=== PATIENT | female | born 1980 | race Hispanic/Latino ===

== ENCOUNTER 2018-12-01 05:39 | Emergency (ER) | payer MEDICAID ==
[2018-12-01] MEDS ORDERED: ROBITUSSIN PO ONE (07:56)
[2018-12-01] MEDS ORDERED: DELTASONE PO ONE (07:56)
[2018-12-01] MEDS ORDERED: TORADOL IM ONE (07:57)
[2018-12-01] MEDS ORDERED: DUONEB *Not for PRN Use IH ONE (07:58)
--- NOTE | 2018-12-01 08:00 | Emergency Department Report ---
Minor Respiratory - HPI Chief Complaint: Dyspnea/Respdistress Stated Complaint: JOE/COUGH Time Seen by Provider: 12/01/18 07:40 Duration: 2 weeks Minor Respiratory: Yes Able to Tolerate Fluids, Yes Cough, No Rhinorrhea, No Sore Throat, No Ear Pain, No Sick Contacts, No Hemoptysis, No Chest Pain, No Shortness of Breath, No Fever Other History: This is a 38-year-old smoker with suicidal allergies presents to the ED complaining of 2 weeks intermittently coughing. Patient states that she is taking [id number] mucus relief and cough medication. Patient states she is still coughing intermittently. Patient states that she does continue to smoke and has sinus allergies that get worse. She denies fever/chills/nausea vomiting/chest pain/shortness of breath patient states that her in albuterol for nebulizer is . ED Review of Systems ROS: Stated complaint: JOE/COUGH Other details as noted in HPI Comment: All other systems reviewed and negative ED Past Medical Hx - Surgical History Past Surgical History?: Yes Hx Cholecystectomy: Yes Additional Surgical History: tubaligation, C/S, lapascopy - Social History Smoking Status: Current Every Day Smoker Substance Use Type: None, Marijuana, Methamphetamines - Medications Home Medications: Home Medications Medication Instructions Recorded Confirmed Last Taken Type ALBUTEROL Inhaler(NF) [VENTOLIN 1 - 2 puff IH PRN #1 inha 12/01/18 Unknown Rx Inhaler(NF)] ALBUTEROL NEB's [Proventil 0.083% 2.5 mg IH DAILY #1 pack 12/01/18 Unknown Rx NEBS] Azithromycin [Zithromax] 250 mg PO DAILY #1 pack 12/01/18 Unknown Rx methylPREDNISolone [Medrol] 4 mg PO DAILY #1 tab.ds.pk 12/01/18 Unknown Rx Minor Respiratory Exam - Exam General: Vital signs noted. No distress. Alert and acting appropriately. HEENT: Yes Moist Mucous Membranes, No Pharyngeal Erythema, No Pharyngeal Exudates, No Rhinorrhea, No Conjuctival Injection, No Frontal Tenderness, No Maxillary Tenderness Ear: Neither TM Bulge, Neither TM Erythema, Neither EAC Pain, Neither EAC Discharge Neck: Yes Supple, No Adenopathy Lungs: Yes Good Air Exchange, Yes Cough (Patient is actively coughing), No Wheezes, No Ronchi, No Stridor, No Labored Respirations, No Retractions, No Use of Accessory Muscles, No Other Abnormal Lung Sounds Heart: Yes Regular, No Murmur Abdomen: Yes Normal Bowel Sounds, No Tenderness, No Peritoneal Signs Skin: No Rash, No Edema Neurologic: Alert and oriented, no deficits. Musculoskeletal: Unremarkable. ED Course Vital Signs 12/01/18 05:46 Temperature 98.6 F Pulse Rate 101 H Respiratory 16 Rate Blood Pressure 159/95 O2 Sat by Pulse 98 Oximetry - Reevaluation(s) Reevaluation #1: Reevaluated patient, no wheezing heard bilaterally, patient was sleeping comfortably in the ED room. Coughing resolved. Patient is stable and ready for discharge 12/01/18 09:09 ED Medical Decision Making - Radiology Data Radiology results: report reviewed, image reviewed - Medical Decision Making 38-year-old female presents with chronic bronchitis/COPD Patient administered a breathing treatment in ED along with prednisone and cough suppressant. Chest x-rays obtained. Discussed with patient smoking cessation. Discussed seasonal allergy relief with Claritin or Zyrtec. We will prescribe measured Dosepak as well as prophylaxis antibiotics and an albuterol inhaler. Discussed the follow-up with the primary care physician. Patient is in no acute distress she is satting 98% oxygen prior to respiratory breathing treatment of DuoNeb. She carries no use of accessory muscles she has no respiratory distress. throughout the ED stay Critical care attestation.: If time is entered above; I have spent that time in minutes in the direct care of this critically ill patient, excluding procedure time. ED Disposition Clinical Impression: Chronic bronchitis with acute exacerbation, Allergic bronchitis Disposition: TO HOME OR SELFCARE Is pt being admited?: No Does the pt Need Aspirin: No Condition: Stable Instructions: Chronic Bronchitis (ED) Additional Instructions: Make sure to follow up with the primary care physician as discussed. Take all your medications as you've been prescribed. If you have any worsening symptoms or develop new symptoms please return to ED immediately. Prescriptions: methylPREDNISolone [Medrol] 4 mg PO DAILY #1 tab.ds.pk ALBUTEROL NEB's [Proventil 0.083% NEBS] 2.5 mg IH DAILY #1 pack ALBUTEROL Inhaler(NF) [VENTOLIN Inhaler(NF)] 1 - 2 puff IH PRN #1 inha Azithromycin [Zithromax] 250 mg PO DAILY #1 pack Referrals: NORMA CUMMINGS MD [Referring] - 3-5 Days [facility] [Outside] - 3-5 Days [facility] [Outside] - 3-5 Days Forms: Work/School Release Form(ED) Time of Disposition: 09:10
--- NOTE | 2018-12-01 09:00 | XRay Report ---
ROUTINE CHEST, TWO VIEWS: HISTORY: Cough. The trachea, heart, mediastinal contour, lung phillips and bony thorax are unremarkable. IMPRESSION: Unremarkable chest x-ray.
[2018-12-01 09:29] VITALS: BP 140/85
== END 2018-12-01 09:24 | disposition home or self-care (01) ==
LOC: ED 05:39
DX: J45.901 Unspecified asthma with (acute) exacerbation (principal); J45.909 Unspecified asthma, uncomplicated; F17.200 Nicotine dependence, unspecified, uncomplicated; F12.10 Cannabis abuse, uncomplicated; F15.10 Other stimulant abuse, uncomplicated; Z98.51 Tubal ligation status; Z90.49 Acquired absence of other specified parts of digestive tract; Z88.4 Allergy status to anesthetic agent; Z88.2 Allergy status to sulfonamides
CPT/HCPCS: 71046; 94640; 96372; 99283; J1885; J7512